=== PATIENT | male | born 1935 | race Caucasian/White ===

== ENCOUNTER 2016-11-19 09:03 | Outpatient (CLI) | payer MEDICARE, BC ==
[2016-11-19 09:54] LABS: ALT (SGPT) 19 U/L (0-55); AST (SGOT) 22 U/L (5-34); Albumin 3.9 g/dL (3.4-4.8); Alkaline Phosphatase 64 U/L (40-150); Bilirubin, Direct 0.2 mg/dL (0.1-0.3); Bilirubin, Total 0.5 mg/dL (0.2-1.2); Protein, Total 6.5 g/dL (5.8-8.1)
== END 2016-11-19 09:04 | disposition home or self-care (01) ==
LOC: BURLAB 09:03
PROVIDERS: ATTEND Urology
DX: C61 Malignant neoplasm of prostate (principal)
CPT/HCPCS: 36415; 80076; 84153

== ENCOUNTER 2017-05-20 07:56 | Outpatient (CLI) | payer MEDICARE, BC | END 2017-05-20 07:57 | disposition home or self-care (01) | LOC: BURLAB 07:56 | PROVIDERS: ATTEND Urology | DX: C61 Malignant neoplasm of prostate (principal) | CPT/HCPCS: 36415; 84153 ==

== ENCOUNTER 2018-09-23 08:54 | Outpatient (CLI) | payer MEDICARE, BC ==
--- NOTE | 2018-09-23 17:22 | RAD ---
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 The joint space is normal for age. There is no fracture or dislocation. A small joint effusion is suggested. IMPRESSION: Mild osteoarthritis with small joint effusion. POS: HOME
== END 2018-09-23 08:55 | disposition home or self-care (01) ==
LOC: BURRAD 08:54
PROVIDERS: ATTEND Family Medicine
DX: M25.561 Pain in right knee (principal); M17.11 Unilateral primary osteoarthritis, right knee; M25.461 Effusion, right knee